=== PATIENT | female | born 1950 | race Caucasian/White ===

== ENCOUNTER → 2017-01-11 | Outpatient (CLI) | payer MEDICARE, OTHER ==
--- NOTE | 2017-01-12 12:43 | MM ---
Reason for exam: screening (asymptomatic). Last mammogram was performed 1 year and 3 months ago. History: Patient is postmenopausal. Benign cyst aspiration of the left breast. Benign excisional biopsy of the left breast. 3 benign excisional biopsies of the right breast. Physical Findings: A clinical breast exam by your physician is recommended on an annual basis and results should be correlated with mammographic findings. MG 3D Screening Mammo W/Cad Bilateral CC and MLO view(s) were taken. Prior study comparison: October 05, 2015, bilateral MG 3d screening mammo w/cad. October 29, 2014, right breast MG work up mamm w CAD RT. The breast tissue is heterogeneously dense. This may lower the sensitivity of mammography. Finding: Stable architectural distortion in the right breast consistent with previous biopsy. No significant changes in finding since October 05, 2015 and October 29, 2014. ASSESSMENT: Benign, BI-RAD 2 RECOMMENDATION: Routine screening mammogram of both breasts in 1 year.
== END | disposition home or self-care (01) ==
LOC: RADMAMWWP 09:16
PROVIDERS: ATTEND Internal Medicine
DX: Z12.31 Encounter for screening mammogram for malignant neoplasm of breast (principal)
CPT/HCPCS: 77063; G0202

== ENCOUNTER → 2018-07-03 | Outpatient (CLI) | payer MEDICARE, OTHER ==
--- NOTE | 2018-07-04 09:03 | MM ---
Reason for exam: screening (asymptomatic). Last mammogram was performed 1 year and 6 months ago. History: Patient is postmenopausal. Benign cyst aspiration of the left breast. Benign excisional biopsy of the left breast. 3 benign excisional biopsies of the right breast. Physical Findings: A clinical breast exam by your physician is recommended on an annual basis and results should be correlated with mammographic findings. MG 3D Screening Mammo W/Cad Bilateral CC and MLO view(s) were taken. Prior study comparison: January 11, 2017, bilateral MG 3d screening mammo w/cad. October 05, 2015, bilateral MG 3d screening mammo w/cad. The breast tissue is heterogeneously dense. This may lower the sensitivity of mammography. Benign appearing bilateral calcifications. Bilateral upper outer quadrant posterior depth focal asymmetry. Post biopsy change bilaterally. ASSESSMENT: Benign, BI-RAD 2 RECOMMENDATION: Routine screening mammogram of both breasts in 1 year.
== END | disposition home or self-care (01) ==
LOC: RADMAMWWP 10:06
PROVIDERS: ATTEND Internal Medicine
DX: Z12.31 Encounter for screening mammogram for malignant neoplasm of breast (principal)
CPT/HCPCS: 77063; 77067

== ENCOUNTER → 2019-09-11 | Outpatient (CLI) | payer MEDICARE, OTHER ==
--- NOTE | 2019-09-12 15:06 | MM ---
Reason for exam: screening (asymptomatic). Last mammogram was performed 1 year and 2 months ago. History: Patient is postmenopausal. Benign cyst aspiration of the left breast. Benign excisional biopsy of the left breast. 3 benign excisional biopsies of the right breast. Physical Findings: A clinical breast exam by your physician is recommended on an annual basis and results should be correlated with mammographic findings. MG 3D Screening Mammo W/Cad Bilateral CC and MLO view(s) were taken. Prior study comparison: July 03, 2018, bilateral MG 3d screening mammo w/cad. January 11, 2017, bilateral MG 3d screening mammo w/cad. There are scattered fibroglandular densities. There is chronic nodularity bilaterally. No significant changes when compared with prior studies. ASSESSMENT: Benign, BI-RAD 2 RECOMMENDATION: Routine screening mammogram of both breasts in 1 year.
== END | disposition home or self-care (01) ==
LOC: RADMAMWWP 09:43
PROVIDERS: ATTEND Internal Medicine
DX: Z12.31 Encounter for screening mammogram for malignant neoplasm of breast (principal)
CPT/HCPCS: 77063; 77067

== ENCOUNTER → 2020-10-05 | Outpatient (CLI) | payer MEDICARE, OTHER ==
--- NOTE | 2020-10-06 11:09 | MM ---
Reason for exam: screening (asymptomatic). Last mammogram was performed 1 year and 1 month ago. History: Patient is postmenopausal. Benign cyst aspiration of the left breast. Benign excisional biopsy of the left breast. 3 benign excisional biopsies of the right breast. Physical Findings: A clinical breast exam by your physician is recommended on an annual basis and results should be correlated with mammographic findings. MG 3D Screening Mammo W/Cad Bilateral CC and MLO view(s) were taken. Prior study comparison: September 11, 2019, bilateral MG 3d screening mammo w/cad. July 03, 2018, bilateral MG 3d screening mammo w/cad. The breast tissue is heterogeneously dense. This may lower the sensitivity of mammography. Stable benign calcifications. Stable post operative distortion right breast. No significant changes when compared with prior studies. ASSESSMENT: Benign, BI-RAD 2 RECOMMENDATION: Routine screening mammogram of both breasts in 1 year.
== END | disposition home or self-care (01) ==
LOC: RADMAMWWP 09:48
PROVIDERS: ATTEND Internal Medicine
DX: Z12.31 Encounter for screening mammogram for malignant neoplasm of breast (principal)
CPT/HCPCS: 77063; 77067

== ENCOUNTER → 2020-11-01 | Outpatient (CLI) | payer MEDICARE, OTHER ==
[2020-11-01 13:58] LABS: African American GFR (CKD) >90 (>60 ml/min/1.73 sqM); Blood Urea Nitrogen 9 mg/dL (7-17); Non-African American GFR(CKD) 90 (>60 ml/min/1.73 sqM)
--- NOTE | 2020-11-01 16:40 | CT ---
EXAMINATION TYPE: CT abdomen pelvis w con DATE OF EXAM: 11/01/2020 COMPARISON: NONE HISTORY: 70-year-old female R10.9 unspecified abdominal pain, c/o nausea, diarrhea, weight loss TECHNIQUE: Contiguous axial scanning of the abdomen and pelvis following administration of 100 ml Iso brandon 300 IV contrast. Delayed images through the kidneys and coronal/sagittal reconstructions perform ed. CT DLP: 1549 mGycm Automated exposure control for dose reduction was used. FINDINGS: Heart normal size without pericardial effusion. Lung bases clear without pleural effusion. Small hiatal hernia. No focal liver lesion or biliary ductal dilatation. Portal venous system is patent. Cholecystectomy c lips. Adrenal glands, right kidney, spleen, and pancreas within normal limits. Small 8 mm centrally located hypodensity left kidney likely small cyst. Symmetric uptake and excretion of contrast from both kidneys. No dilated small bowel, free fluid, or free air. 1.7 cm oval fat density lesion anterior right mid abdominal subcutaneous adipose just below the skin surface could represent an oil cyst or lipoma. No mesenteric or retroperitoneal lymphadenopathy. Moderate stool burden. Oral contrast progressed to the hepatic flexure of the colon. No pericolonic i nflammatory change. Slightly ahaustral appearance to the left side of the colon. No pericolonic infla mmatory change. Bladder partially urine distended. Punctate 3 mm calcification along the left lateral bladder wall li alf adherent bladder calculus. Uterus is anteverted. Scattered uterine calcifications could reflect underlying partially calcified f ibroids. Focal 1.9 cm area of enhancement along the left uterine fundus may require further assessmen t. Right ovary visualized. Possible 2.3 cm cyst of the left ovary, axial image 63. No abnormal fluid col lection in the pelvis or pelvic lymphadenopathy. Bones: Degenerative change pubic symphysis. [id number] degenerative change at the hips. Hypertr ophic facet arthropathy mid to lower lumbar spine with grade 1 anterolisthesis L4-L5 and Baastrup's d isease. [facility] within the lower thoracic spine. IMPRESSION: 1. SMALL HIATAL HERNIA. 2. SOMEWHAT AHAUSTRAL APPEARANCE TO THE LEFT SIDE OF THE COLON. CORRELATE FOR POSSIBLE PRIOR BOUTS OF RECURRENT COLITIS. CHRONIC ULCERATIVE COLITIS IS IN THE DIFFERENTIAL. CONSIDER DIRECT VISUALIZATION. 3. UTERINE CALCIFICATIONS, POSSIBLE UNDERLYING PARTIALLY CALCIFIED FIBROIDS. THERE IS A 1.9 CM HIGH D ENSITY AREA AT THE LEFT UTERINE FUNDUS. A FIBROID IS POSSIBLE. A MASS OF THE LEFT CORNUAL ENDOMETRIUM IS NOT EXCLUDED AT THIS TIME. CONSIDER SNAP SHEARER REFERRAL. PELVIC ULTRASOUND AND/OR FEMALE PELVIC MRI C AN FURTHER EVALUATE. 4. A 2.3 CM CYST OF THE LEFT OVARY. THIS CAN ALSO BE FURTHER ASSESSED ON THE PELVIC ULTRASOUND OR MRI .
== END | disposition home or self-care (01) ==
LOC: RADCTMAIN 13:02
PROVIDERS: ATTEND Internal Medicine
DX: E87.6 Hypokalemia (principal); R10.9 Unspecified abdominal pain; K44.9 Diaphragmatic hernia without obstruction or gangrene; N85.8 Other specified noninflammatory disorders of uterus; N83.202 Unspecified ovarian cyst, left side
CPT/HCPCS: 82565; 84520; 74177; 36415; Q9967

== ENCOUNTER → 2020-12-01 | Outpatient (CLI) | payer MEDICARE, OTHER ==
--- NOTE | 2020-12-02 05:16 | MR ---
EXAMINATION TYPE: MR pelvis wo/w con DATE OF EXAM: 12/01/2020 COMPARISON: CT scan 11/01/2020 HISTORY: Ovarian Cyst CONTRAST: Standard multiplanar, multisequence MRI departmental protocol utilizing 7.5 mL intravenous Gadavist g adolinium contrast. Uterus is somewhat enlarged with heterogeneity consistent with multiple fibroids. These have mixed si gnal and there is low signal in the anterior fibroid that measures 2.5 cm. This is consistent with ca lcification. There is posterior fundal fibroid measuring 2.5 cm. There is 2.5 cm thin wall cyst in th e left adnexal region consistent with simple ovarian cyst. The bladder distends smoothly. I see no fr ee fluid in the pelvis. There is no evidence of right adnexal pelvic mass. The sacroiliac joints appear intact. Visualized bowel in the pelvis appears intact. IMPRESSION: Enlarged fibroid uterus measures 7.7 x 5.7 x 5.4 cm. Endometrial cavity difficult to evaluate because of the multiple fibroids. Left ovarian simple cyst without change in size compared to recent CT scan . No solid adnexal mass.
== END | disposition home or self-care (01) ==
LOC: RADMRIMAIN 06:09
PROVIDERS: ATTEND Internal Medicine
DX: D25.9 Leiomyoma of uterus, unspecified (principal); N83.292 Other ovarian cyst, left side
CPT/HCPCS: 72197; A9585

== ENCOUNTER → 2021-04-14 | Outpatient (CLI) | payer MEDICARE, OTHER ==
[2021-04-15 01:18] LABS: T4, Free (Free Thyroxine) 1.36 ng/dL (0.800-1.800)
== END | disposition home or self-care (01) ==
LOC: LABWHC1 16:06
PROVIDERS: ATTEND Internal Medicine
DX: E05.90 Thyrotoxicosis, unspecified without thyrotoxic crisis or storm (principal)
CPT/HCPCS: 36415; 84439; 84443; 84445; 84481

== ENCOUNTER → 2021-06-22 | Outpatient (CLI) | payer MEDICARE, OTHER ==
--- NOTE | 2021-06-23 09:47 | NM ---
EXAMINATION TYPE: NM thyroid image w uptake DATE OF EXAM: 06/23/2021 COMPARISON: Ultrasound 05/18/2021 HISTORY: Thyrotoxicosis TECHNIQUE: Thyroid iodine uptake is calculated and images performed after the oral administration of 307 uCi 1-123 Capsule. FINDINGS: There is marked heterogeneity in distribution of activity throughout the gland. There is a reduced uptake are seen involving the mid and lower pole the left thyroid and upper pole the right th yroid. The 4 hour iodine uptake is calculated at 11.7% (normal range 8-14%). The 24-hour iodine uptak e is calculated at 33% (normal range 15-35%). IMPRESSION: 1. Heterogeneous uptake bilaterally could be associated with thyroiditis. Areas of reduced uptake are greater than the small lesions reported by ultrasound but do appear to correspond to some of the les ions compatible cold defects.
== END | disposition home or self-care (01) ==
LOC: RADNMMAIN 08:46
PROVIDERS: ATTEND Internal Medicine
DX: E05.90 Thyrotoxicosis, unspecified without thyrotoxic crisis or storm (principal)
CPT/HCPCS: 78014; A9516

== ENCOUNTER → 2021-06-23 | Outpatient (CLI) | payer MEDICARE, OTHER ==
[2021-06-23 14:58] LABS: T4, Free (Free Thyroxine) 1.2 ng/dL (0.800-1.800)
== END | disposition home or self-care (01) ==
LOC: LABWHC1 09:13
PROVIDERS: ATTEND Physician Assistant Medical
DX: E05.90 Thyrotoxicosis, unspecified without thyrotoxic crisis or storm (principal)
CPT/HCPCS: 36415; 84439; 84443; 84481

== ENCOUNTER → 2021-09-19 | Outpatient (CLI) | payer MEDICARE, OTHER ==
[2021-09-19 18:39] LABS: T4, Free (Free Thyroxine) 1.06 ng/dL (0.800-1.800)
== END | disposition home or self-care (01) ==
LOC: LABWHC1 11:38
PROVIDERS: ATTEND Physician Assistant Medical
DX: E05.90 Thyrotoxicosis, unspecified without thyrotoxic crisis or storm (principal)
CPT/HCPCS: 36415; 84439; 84443; 84481

== ENCOUNTER → 2021-11-09 | Outpatient (CLI) | payer MEDICARE, OTHER ==
--- NOTE | 2021-11-10 08:15 | MM ---
Reason for Exam: Screening (asymptomatic). Last mammogram was performed 1 year(s) and 1 month(s) ago. Patient History: Menarche at age 9. First Full-Term at age 16. Postmenopausal. Benign Cyst Aspiration on the left side. Benign Excisional Biopsy on the right side. Benign Excisional Biopsy on the right side. Benign Excisional Biopsy on the right side. Benign Excisional Biopsy on the left side. Risk Values: Liliane 5 year model risk: 2.1%. NCI Lifetime model risk: 5.1%. Prior Study Comparison: 07/03/2018 Bilateral Screening Mammogram, [facility]. 09/11/2019 Bilateral Screening Mammogram, [facility]. 10/05/2020 Bilateral Screening Mammogram, [facility]. Tissue Density: The breast tissue is heterogeneously dense. This may lower the sensitivity of mammography. Findings: Analyzed By CAD. There is no suspicious group of microcalcifications or new suspicious mass in either breast. Post excisional changes of the right breast. Overall Assessment: Benign, BI-RAD 2 Management: Screening Mammogram of both breasts in 1 year. A clinical breast exam by your physician is recommended on an annual basis and results should be correlated with mammographic findings. Electronically signed and approved by: Deion Serrano M.D. Radiologis
== END | disposition home or self-care (01) ==
LOC: RADMAMWWP 10:56
PROVIDERS: ATTEND Internal Medicine
DX: Z12.31 Encounter for screening mammogram for malignant neoplasm of breast (principal)
CPT/HCPCS: 77063; 77067

== ENCOUNTER → 2021-12-26 | Outpatient (CLI) | payer MEDICARE, OTHER ==
[2021-12-26 15:08] LABS: T4, Free (Free Thyroxine) 1.3 ng/dL (0.800-1.800)
== END | disposition home or self-care (01) ==
LOC: LABWHC1 10:26
PROVIDERS: ATTEND Physician Assistant
DX: E05.90 Thyrotoxicosis, unspecified without thyrotoxic crisis or storm (principal)
CPT/HCPCS: 36415; 84439; 84443; 84481

== ENCOUNTER 2022-05-05 22:26 | Emergency (ER) | payer MEDICARE, OTHER ==
[2022-05-05 22:44] VITALS: TEMP 98.3
[2022-05-05] MEDS ORDERED: ACETAMINOPHEN TAB 500 MG TAB PO STA (23:21)
[2022-05-06] VITALS: BP 151/77; PULSE 67; RESP 16
--- NOTE | 2022-05-06 | ED ---
Fall HPI - General Source: patient Mode of arrival: ambulatory <Eva Phan - Last Filed: 05/06/22 00:46> <Mina Kebede - Last Filed: 05/06/22 08:58> - General Chief Complaint: Fall Stated Complaint: Fall, head injury Time Seen by Provider: 05/05/22 22:50 - History of Present Illness Initial Comments: She is a 71-year-old female who presents to the emergency department for evaluation of fall. Patient stepped in a hole in the grass in her yard and fell hitting her head. Patient did not lose consciousness. She is on baby aspirin otherwise not use blood thinners. Patient has laceration to back of scalp with headache in this region. She denies neck pain, nausea, vomiting, chest pain, shortness of breath. Last tetanus greater than 5 years ago. (Eva Phan) - Related Data Allergies Allergy/AdvReac Type Severity Reaction Status Date / Time No Known Allergies Allergy Verified 05/05/22 22:44 Review of Systems ROS Other: All systems not noted in ROS Statement are negative. <Eva Phan - Last Filed: 05/06/22 00:46> ROS Other: All systems not noted in ROS Statement are negative. <Mina Kebede - Last Filed: 05/06/22 08:58> ROS Statement: Those systems with pertinent positive or pertinent negative responses have been documented in the HPI. Past Medical History Past Medical History: Diabetes Mellitus, Hyperlipidemia, Hypertension, Thyroid Disorder History of Any Multi-Drug Resistant Organisms: None Reported Past Surgical History: Adenoidectomy, Appendectomy, Cholecystectomy, Joint Replacement, Orthopedic Surgery, Tonsillectomy Additional Past Surgical History / Comment(s): rt knee Past Psychological History: No Psychological Hx Reported Smoking Status: Never smoker Past Alcohol Use History: None Reported Past Drug Use History: None Reported <Eva Phan - Last Filed: 05/06/22 00:46> General Exam Limitations: no limitations General appearance: alert, in no apparent distress Head exam: Present: normocephalic. Absent: normal inspection (1 cm laceration over occipital left scalp ) Eye exam: Present: normal appearance, PERRL, EOMI. Absent: scleral icterus, conjunctival injection, periorbital swelling Neck exam: Present: normal inspection, full ROM. Absent: tenderness, meningismus, lymphadenopathy Respiratory exam: Present: normal lung sounds bilaterally. Absent: respiratory distress, wheezes, rales, rhonchi, stridor Cardiovascular Exam: Present: regular rate, normal rhythm, normal heart sounds. Absent: systolic murmur, diastolic murmur, rubs, gallop, clicks Neurological exam: Present: alert, oriented X3, CN II-XII intact Psychiatric exam: Present: normal affect, normal mood Skin exam: Present: warm, dry, intact, normal color. Absent: rash <Eva Phan - Last Filed: 05/06/22 00:46> Course Vital Signs 05/05/22 05/06/22 22:40 00:00 Temperature 98.3 F Pulse Rate 66 67 Respiratory 20 16 Rate Blood Pressure 199/79 151/77 O2 Sat by Pulse 98 99 Oximetry Procedures - Laceration Laceration #1 Indication: laceration Site: scalp Size (cm): 1 Description: linear Pre-repair: wound explored, irrigated extensively Patient Tolerated Procedure: well, no complications <Eva Phan - Last Filed: 05/06/22 00:46> - Laceration Laceration #1 Additional Comments: 2 alpesh (Eva Phan) Medical Decision Making <Eva Phan - Last Filed: 05/06/22 00:46> <Mina Kebede - Last Filed: 05/06/22 08:58> - Medical Decision Making Was pt. sent in by a medical professional or institution ([facility]AMES [facility], METAL FURNACE OPERATOR, urgent care, hospital, or intermediate...) When possible be specific @ -No Did you speak to anyone other than the patient for history (EMS, parent, family, police, friend...)? What history was obtained from this source @ -No Did you review nursing and triage notes (agree or disagree)? Why? @ -I reviewed and agree with nursing and triage notes Were old charts reviewed (outside hosp., previous admission, EMS record, old EKG, old radiological studies, urgent care reports/EKG's, intermediate records)? Report findings @ -No old charts were reviewed Differential Diagnosis (chest pain, altered mental status, abdominal pain women, abdominal pain men, vaginal bleeding, weakness, fever, dyspnea, syncope, headache, dizziness, GI bleed, back pain, seizure, CVA, palpatations, mental health)? @ -Differential Headache: Migraine, tension, cluster, carbon monoxide, central venous thrombosis, pension karma temporal arteritis, acute closure glaucoma, intercranial hemorrhage, mastoiditis, sinusitis, head injury, this is not meant to be an all-inclusive list. EKG interpreted by me (3pts min.). @ -As above X-rays interpreted by me (1pt min.). @ NA CT interpreted by me (1pt min.). @ Yes, CT brain c spine U/S interpreted by me (1pt. min.). @ -None done What testing was considered but not performed or refused? (CT, X-rays, U/S, labs)? Why? @ -None What meds were considered but not given or refused? Why? @ -None Did you discuss the management of the patient with other professionals (professionals i.e. , PA, METAL FURNACE OPERATOR, lab, RT, psych nurse, social media executive, mulling machine operator, teacher, trust officer, renal case manager)? Give summary @ -No Was smoking cessation discussed for >3mins.? @ -No Was critical care preformed (if so, how long)? @ -No Were there social determinants of health that impacted care today? How? (Homelessness, low income, unemployed, alcoholism, drug addiction, transportation, low edu. Level, literacy, decrease access to med. care, [facility], rehab)? @ -No Was there de-escalation of care discussed even if they declined (Discuss DNR or withdrawal of care, Hospice)? DNR status @ -No What co-morbidities impacted this encounter? (DM, HTN, Smoking, COPD, CAD, Cancer, CVA, ARF, Chemo, Hep., AIDS, mental health diagnosis, sleep apnea, morbid obesity)? @ -None Was patient admitted / discharged? Hospital course, mention meds given and route, prescriptions, significant lab abnormalities, going to OR and other pertinent info. @ -Patient is 71-year-old female presenting with head injury. Patient well- appearing she reports improvement of pain since incident. No nausea or vomiting. No loss of consciousness. No blood thinner use. Patient has small laceration to back of scalp which was well approximated with 2 alpesh. Tetanus updated. Patient given Tylenol. Patient care given to Dr. Kebede at 00:45 Undiagnosed new problem with uncertain prognosis? @ -No] Drug Therapy requiring intensive monitoring for toxicity (Heparin, Nitro, Insulin, Cardizem)? @ -[No] Were any procedures done? @ yes, staple care Diagnosis/symptom? @ -head injury Acute, or Chronic, or Acute on Chronic? @ -acute Uncomplicated (without systemic symptoms) or Complicated (systemic symptoms)? @ -uncomplicated Side effects of treatment? @ -[No] Exacerbation, Progression, or Severe Exacerbation? @ -[No] Poses a threat to life or bodily function? How? (Chest pain, [place], [place], pneumonia, PE, COPD, DKA, ARF, appy, cholecystitis, CVA, Diverticulitis, Homicidal, Suicidal, threat to staff... and all critical care pts) @ -[No] Dr. Kebede is my attending. (Eva Phan) Patient signed out to me pending results of CT imaging. CT imaging returned after a long delay, and was negative for any acute traumatic injury. I updated the patient. Strict return precautions were discussed. Patient will be discharged home at this time. I instructed the patient to follow up with their PCP in the next 1-3 days. I explained that the patient should return to the emergency department if they experience any worsening symptoms. Strict return precautions were discussed with the patient. The patient expressed understanding of these instructions. I answered all questions that the patient had. The patient was discharged home in good condition with their prescriptions and follow up information. (Mina Kebede) Disposition Is patient prescribed a controlled substance at d/c from ED?: No <Eva Phan - Last Filed: 05/06/22 00:46> Decision Time: 01:30 <Mina Kebede - Last Filed: 05/06/22 08:58> Clinical Impression: Head injury Disposition: HOME SELF-CARE Condition: Good Instructions (If sedation given, give patient instructions): Concussion (ED), Fall Prevention for Older Adults (ED), Head Injury (ED), Staple Care (ED) Additional Instructions: Avoid anti-inflammatory medication for the next 48 hours. Take Tylenol for pain. Follow-up with primary care provider in one to 2 days. Return for staple removal in 7 days or if you experience new, concerning, or worsening symptoms. Referrals: Bessy Sweeney MD [Primary Care Provider] - 1-2 days
[2022-05-06] MEDS ORDERED: DIPH,PERTUS(ACELL)TETVAC-LF 0.5 ML VIAL IM ONE (00:33)
--- NOTE | 2022-05-06 01:24 | CT ---
EXAMINATION TYPE: CT brain cspine wo con DATE OF EXAM: 05/06/2022 COMPARISON: None HISTORY: 10/12/[address] DLP: 1463.6 mGycm Automated exposure control for dose reduction was used. Images of the brain and cervical spine obtained with no contrast. Ventricles have normal size. There is no mass effect or midline shift. No sign of intracranial hemorr renay. The calvarium is intact. There is normal aeration of the mastoid sinuses. The skull base is int act paranasal sinuses appear normal. No evidence of cerebral edema. There is scalp soft tissue swelli ng over the occipital bone in the midline measuring 5 mm The cervical vertebra have normal alignment. Posterior element are intact. There is multilevel cervic al facet arthropathy. No subluxation. No significant disc space narrowing. IMPRESSION: Mild cervical spondylotic changes. No fracture. Negative CT scan of the brain. Brain appears normal for age. Small occipital scalp hematoma.
== END 2022-05-06 01:45 | disposition home or self-care (01) ==
LOC: EC 22:26
DX: S09.90XA Unspecified injury of head, initial encounter (principal); M47.812 Spondylosis without myelopathy or radiculopathy, cervical region; E11.9 Type 2 diabetes mellitus without complications; I10 Essential (primary) hypertension; Z23 Encounter for immunization; W18.30XA Fall on same level, unspecified, initial encounter
CPT/HCPCS: 12001; 70450; 72125; 90471; 90715; 99284

== ENCOUNTER → 2022-06-01 | Outpatient (CLI) | payer MEDICARE, OTHER ==
--- NOTE | 2022-06-01 10:48 | US ---
EXAMINATION TYPE: US thyroid st tissue head/neck DATE OF EXAM: 06/01/2022 COMPARISON: US 05/18/2021 CLINICAL INDICATION: Female, 71 years old with history of E04.2 MULTINODULAR GOITER; Goiter, patient is on thyroid medication. GLAND SIZE: Right Lobe: 4.5 x 1.7 x 1.8 cm Overall Parenchyma: Very heterogenous Left Lobe: 4.5 x 1.8 x 2.0 cm Overall Parenchyma: heterogeneous Isthmus Thickness: 0.4 cm NODULES RIGHT: # of nodules measured on right: 1 1. 1.1 X 1.0 x 0.9 cm, lower mid, solid or almost completely solid, hypoechoic nodule, which is wid er than tall, with smooth margins, with echogenic foci. TR 4. Prior size: Cannot correlate with certainty on prior ultrasound. LEFT: # of nodules measured on left: 4 1. 1.2 X 1.1 x 1.0 cm, mid lateral, solid or almost completely solid, hypoechoic nodule, which is w ider than tall, with smooth margins, without echogenic foci. TR 4. Prior size: Cannot correlate with certainty 2. 0.8 X 0.9 x 0.9 cm, lower mid, mixed cystic and solid, hypoechoic nodule, which is as wide as i t is tall, with smooth margins, without echogenic foci. TR 3. Prior size: Cannot correlate with certainty 3. 0.7 X 0.8 x 0.7 cm, lower mid, cystic or almost completely cystic, anechoic nodule, which is wid er than tall, with smooth margins, with echogenic foci. TR1. Prior size: Cannot correlate with certainty 4. 0.4 X 0.4 x 0.3 cm, upper lateral, solid or almost completely solid, hyperechoic nodule, which is wider than tall, with smooth margins, with echogenic foci. TR 4. Prior size: 0.3 x 0.3 x 0.3 cm ISTHMUS: # of nodules measured in the isthmus: 0 Bilateral neck scanned, no evidence of lymphadenopathy. IMPRESSION: Multiple small bilateral thyroid nodules demonstrated with diffusely heterogenous thyroid gland. Thes e appear grossly stable from prior examination however evaluation is limited due to heterogeneity of the gland. None of these nodules meet criteria for FNA. Follow-up ultrasound in one year is recommend ed.
[2022-06-01 16:14] LABS: T4, Free (Free Thyroxine) 1.13 ng/dL (0.800-1.800)
== END | disposition home or self-care (01) ==
LOC: RADUSWWP 08:58
PROVIDERS: ATTEND Internal Medicine
DX: E04.2 Nontoxic multinodular goiter (principal); E11.9 Type 2 diabetes mellitus without complications; E05.90 Thyrotoxicosis, unspecified without thyrotoxic crisis or storm
CPT/HCPCS: 36415; 76536; 83036; 84439; 84443; 84481

== ENCOUNTER → 2022-08-31 | Outpatient (CLI) | payer MEDICARE, OTHER ==
--- NOTE | 2022-08-31 10:37 | P.GSHP ---
History of Present Illness H&P Date: 08/31/22 Chief Complaint: breast pain Abeba is a 71 year old female seen in consultation for Dr. Sweeney regarding an abnormal right breast mammogram. Her last bilateral mammogram was 11-09-22 it was BIRASD 2. A diagnositc right breast ultrasound and mammogram were done 04-21-22. The patient has had some intermittent breast pain. She states the pain was bilateral in nature. I'm uncertain as to why only the right mammogram was done in April. The patient's mammogram on showed scattered fibroglandular densities. The patient's ultrasound on the same date revealed at the 9 o'clock position a 6 x 4 mm hypoechoic lesion possible debris- filled cyst At the 9 o'clock position a 1.4 x 0.7 cm possible lipoma At the 10 o'clock position a couple additional 2 small to characterize lesions present just deep to the skin This was considered BIRADS 3 and repeat ultrasound in 6 months was recommended. The patient is not complaining of any new lumps masses or nodules in either breast. The patient is not complaining of any nipple discharge or skin changes. She had had a right breast biopsy about 30 years ago which was benign. caffeine: 3 cups tea/day; 1 pop/day nicotine: none chocolate: occasional BCP: 10 years hormones: at menopause over the counter 2 months Family history: sister: ? kidney or liver cancer Hormonal History: menarche: 9 as well at 2 adopted; breat fed: yes, age at first : 17 menopause: 41 Surgical History: tonsil/adeniods Stripping Gallbladder Right breast biopsy right knee replaced Medical history: diabetic hypothyroid HTN vertigo asthma Social History: nicotine: none alcohol: none drugs: none - Constitutional Constitutional: Denies chills, Denies fever - EENT Eyes: denies blurred vision, denies pain Ears: deny: decreased hearing, tinnitus Ears, nose, mouth and throat: Denies headache, Denies sore throat - Breasts Breasts: bilateral: as per HPI - Cardiovascular Cardiovascular: Denies chest pain, Denies shortness of breath - Respiratory Respiratory: Denies cough, Denies 7 - Gastrointestinal Gastrointestinal: Reports diarrhea, Denies abdominal pain, Denies nausea, Denies vomiting - Genitourinary (Female) Genitourinary: Denies dysuria, Denies hematuria - Menstruation Menstruation: Reports postmenopausal - Musculoskeletal Musculoskeletal: Denies myalgias - Integumentary Comment: none - Neurological Neurological: Denies numbness, Denies weakness - Psychiatric Psychiatric: Denies anxiety, Denies depression - Endocrine Endocrine: Reports weight change, Denies fatigue - Hematologic/Lymphatic Comment: none - Allergic/Immunologic Allergic/Immunologic: Reports seasonal allergies Past Medical History Past Medical History: Diabetes Mellitus, Hyperlipidemia, Hypertension, Thyroid Disorder History of Any Multi-Drug Resistant Organisms: None Reported Past Surgical History: Adenoidectomy, Appendectomy, Cholecystectomy, Joint Replacement, Orthopedic Surgery, Tonsillectomy Additional Past Surgical History / Comment(s): rt knee Past Psychological History: No Psychological Hx Reported Smoking Status: Never smoker Past Alcohol Use History: None Reported Past Drug Use History: None Reported Medications and Allergies Allergies Allergy/AdvReac Type Severity Reaction Status Date / Time No Known Allergies Allergy Verified 05/05/22 22:44 Surgical - Exam - General no distress - Eyes normal ocular movement - ENT no hearing loss - Neck trachea midline - Respiratory normal respiratory effort, clear to auscultation - Cardiovascular Rhythm: regular Heart Sounds: normal: S1, S2 - Abdomen Abdomen: soft, non tender, no guarding, no rigid, no rebound - Integumentary normal turgor - Neurologic no disoriented, no combative - Musculoskeletal normal gait, normal posture - Psychiatric oriented to time, oriented to person, oriented to place, speech is normal, memory intact Breast Exam: BRA: 44D Inspection: Bilateral grade 3 ptosis Palpation: Right breast: Multi-positional exam fibrocystic changes well-healed scar from prior surgery no discrete dominant masses or nodules of concern Right axilla: No adenopathy of concern Left breast: Multiple positional exam fibrocystic changes no discrete dominant masses or nodules of concern Left axilla: No adenopathy of concern Results Bilateral mammogram from October 2021 as well as right breast mammogram and ultrasound from April 2022 review; patient is due for bilateral mammogram and right breast ultrasound in October 2022 Assessment and Plan Assessment: Impression: Bilateral breast pain Patient drinks a large amount of caffeine Mammogram and ultrasound of the breast reviewed Plan: Bilateral mammograms and right breast ultrasound in October 2022 with appointment at that time Patient is going to try lifestyle modification to decrease caffeine intake Nothing is noted at this time which would warrant interventional biopsy Cc: Dr. Sweeney
[2022-08-31 10:59] VITALS: BP 160/83; PULSE 69; RESP 17; TEMP 97.9
== END ==
LOC: WWCWWP 10:03
PROVIDERS: ATTEND Surgery
DX: N64.4 Mastodynia (principal); E11.9 Type 2 diabetes mellitus without complications; E03.9 Hypothyroidism, unspecified; E78.5 Hyperlipidemia, unspecified; I10 Essential (primary) hypertension; J45.909 Unspecified asthma, uncomplicated; Z79.899 Other long term (current) drug therapy; Z79.84 Long term (current) use of oral hypoglycemic drugs; Z75.1 Person awaiting admission to adequate facility elsewhere

== ENCOUNTER → 2022-10-24 | Outpatient (CLI) | payer MEDICARE, OTHER ==
--- NOTE | 2022-10-24 09:35 | MM ---
Reason for Exam: Follow-up at short interval from prior study. Last screening mammogram was performed 12 month(s) ago. Patient History: Menarche at age 9. First Full-Term at age 16. Postmenopausal. Benign Cyst Aspiration on the left side. Benign Excisional Biopsy on the right side. Benign Excisional Biopsy on the right side. Benign Excisional Biopsy on the right side. Benign Excisional Biopsy on the left side. Risk Values: Liliane 5 year model risk: 2.1%. NCI Lifetime model risk: 4.8%. Prior Study Comparison: 10/05/2015 Bilateral Screening Mammogram, [facility]. 01/11/2017 Bilateral Screening Mammogram, [facility]. 07/03/2018 Bilateral Screening Mammogram, [facility]. 09/11/2019 Bilateral Screening Mammogram, [facility]. 10/05/2020 Bilateral Screening Mammogram, [facility]. 11/09/2021 Bilateral MG 3D screening mammo w/cad, [facility]. 04/21/2022 Right US breast RT, [facility]. 04/21/2022 Right MG 3D diag mammo w/cad RT, [facility]. Tissue Density: There are scattered fibroglandular densities. Findings: Analyzed By CAD. Unchanged post excisional scar 12 1:00 right breast. Areas of asymmetric density also remain unchanged as do scattered secretory calcifications and benign bilateral oil cyst calcifications. Overall Assessment: Incomplete: need additional imaging evaluation, BI-RAD 0 Management: Diagnostic Breast Ultrasound of the right breast. Electronically signed and approved by: Bhavin Schwartz M.D. Radiologist
--- NOTE | 2022-10-24 10:15 | USB ---
Reason for Exam: Follow-up at short interval from prior study. Patient History: Menarche at age 9. First Full-Term at age 16. Postmenopausal. Benign Cyst Aspiration on the left side. Benign Excisional Biopsy on the right side. Benign Excisional Biopsy on the right side. Benign Excisional Biopsy on the right side. Benign Excisional Biopsy on the left side. Risk Values: Liliane 5 year model risk: 2.1%. NCI Lifetime model risk: 4.8%. Technique: Method: Targeted. Prior Study Comparison: 10/05/2020 Bilateral Screening Mammogram, [facility]. 11/09/2021 Bilateral MG 3D screening mammo w/cad, [facility]. 04/21/2022 Right MG 3D diag mammo w/cad RT, [facility]. Findings: The lateral section of the breast of the right breast, the axilla of the right breast and the retroareolar of the right breast were scanned. Targeted scanning of the upper outer aspect of the right breast 9:00 and 10:00 position including the subareolar region and axilla. * The previously seen 9:00 vague oval hypoechoic structure measuring 6 mm is no longer identified. * The echogenic oval circumscribed lesion at the 9:00 position, 9 cm from the nipple measuring 1.4 x 1.0 x 0.7 cm remains unchanged most consistent with a benign lipoma. * A couple adjacent cysts measuring up to 6 mm located at 10:00, 6 cm from the nipple remain unchanged. * No other solid or cystic lesion or axillary lymphadenopathy. Overall Assessment: Benign, BI-RAD 2 Management: Screening Mammogram of both breasts in 1 year. A clinical breast exam by your physician is recommended on an annual basis and results should be correlated with mammographic findings. This exam should not preclude additional follow-up of suspicious palpable abnormalities. Results were given to the patient verbally at the time of exam. Electronically signed and approved by: Bhavin Schwartz M.D. Radiologist
== END | disposition home or self-care (01) ==
LOC: RADMAMWWP 08:30
PROVIDERS: ATTEND Surgery
DX: R92.8 Other abnormal and inconclusive findings on diagnostic imaging of breast (principal); Z78.0 Asymptomatic menopausal state
CPT/HCPCS: 77066; 76642; G0279; 77062

== ENCOUNTER → 2022-11-30 | Outpatient (CLI) | payer MEDICARE, OTHER ==
[2022-11-30 13:58] VITALS: BP 147/92; PULSE 73; RESP 17; TEMP 97.9
--- NOTE | 2022-11-30 14:34 | P.PN ---
Subjective Progress Note Date: 11/30/22 Principal diagnosis: breast pain breast pain Abeba is a 71 year old female seen in consultation for Dr. Sweeney regarding an abnormal right breast mammogram. Her last bilateral mammogram was 11-09-22 it was BIRASD 2. A diagnositc right breast ultrasound and mammogram were done 04-21-22. The patient has had some intermittent breast pain. She states the pain was bilateral in nature. I'm uncertain as to why only the right mammogram was done in April. The patient's mammogram on showed scattered fibroglandular densities. The patient's ultrasound on the same date revealed at the 9 o'clock position a 6 x 4 mm hypoechoic lesion possible debris- filled cyst At the 9 o'clock position a 1.4 x 0.7 cm possible lipoma At the 10 o'clock position a couple additional 2 small to characterize lesions present just deep to the skin This was considered BIRADS 3 and repeat ultrasound in 6 months was recommended. The patient is not complaining of any new lumps masses or nodules in either breast. The patient is not complaining of any nipple discharge or skin changes. She had had a right breast biopsy about 30 years ago which was benign. 11-30-22 bilateral mammogram on 10-24-22; right breast ultrasound 10-24-22 BIRAD 2 1. probable benign lipoma at 9:00 2. 6 mm cyst at 10:00 She is not complaining of any new lumps masses or nodules of concern in either breast. She states that the pain which she had prior has decreased. He has decreased her caffeine intake. caffeine: 3 cups tea/day; 1 pop/day; 11-30-22 has stopped drinking pop/ decreased tea nicotine: none chocolate: occasional BCP: 10 years hormones: at menopause over the counter 2 months Family history: sister: ? kidney or liver cancer Hormonal History: menarche: 9 as well at 2 adopted; breat fed: yes, age at first : 17 menopause: 41 Surgical History: tonsil/adeniods Stripping Gallbladder Right breast biopsy right knee replaced Medical history: diabetic hypothyroid HTN vertigo asthma Social History: nicotine: none alcohol: none drugs: none - Constitutional Constitutional: Denies chills, Denies fever - EENT Eyes: denies blurred vision, denies pain Ears: deny: decreased hearing, tinnitus Ears, nose, mouth and throat: Denies headache, Denies sore throat - Breasts Breasts: bilateral: as per HPI - Cardiovascular Cardiovascular: Denies chest pain, Denies shortness of breath - Respiratory Respiratory: Denies cough - Gastrointestinal Gastrointestinal: Reports diarrhea, Denies abdominal pain, Denies nausea, Denies vomiting - Genitourinary (Female) Genitourinary: Denies dysuria, Denies hematuria - Menstruation Menstruation: Reports postmenopausal - Musculoskeletal Musculoskeletal: Denies myalgias - Integumentary Comment: none - Neurological Neurological: Denies numbness, Denies weakness - Psychiatric Psychiatric: Denies anxiety, Denies depression - Endocrine Endocrine: Reports weight change, Denies fatigue - Hematologic/Lymphatic Comment: none - Allergic/Immunologic Allergic/Immunologic: Reports seasonal allergies Past Medical History Past Medical History: Diabetes Mellitus, Hyperlipidemia, Hypertension, Thyroid Disorder History of Any Multi-Drug Resistant Organisms: None Reported Past Surgical History: Adenoidectomy, Appendectomy, Cholecystectomy, Joint Replacement, Orthopedic Surgery, Tonsillectomy Additional Past Surgical History / Comment(s): rt knee Past Psychological History: No Psychological Hx Reported Smoking Status: Never smoker Past Alcohol Use History: None Reported Past Drug Use History: None Reported Medications and Allergies Allergies Allergy/AdvReac Type Severity Reaction Status Date / Time No Known Allergies Allergy Verified 05/05/22 22:44 Objective - Vital Signs Vital signs: Vital Signs Temp 97.9 F 11/30/22 13:49 Pulse 73 11/30/22 13:49 Resp 17 11/30/22 13:49 BP 147/92 11/30/22 13:49 Pulse Ox 97 11/30/22 13:49 FiO2 Intake & Output 11/29/22 11/30/22 11/30/22 18:59 06:59 18:59 Weight 86.183 kg - Constitutional General appearance: Present: cooperative - EENT Eyes: Present: EOMI ENT: Present: hearing grossly normal - Neck Neck: Present: normal ROM - Respiratory Respiratory: bilateral: CTA - Cardiovascular Heart sounds: normal: S1, S2 - Gastrointestinal General gastrointestinal: Present: soft - Integumentary Integumentary: Present: normal turgor - Musculoskeletal Musculoskeletal: Present: gait normal - Psychiatric Psychiatric: Present: A&O x's 3, appropriate affect, intact judgment & insight - Additional findings Additional findings: Breast Exam: BRA: 44D Inspection: Bilateral grade 3 ptosis Palpation: Right breast: patient examined sitting up fibrocystic changes well-healed scar from prior surgery no discrete dominant masses or nodules of concern Right axilla: No adenopathy of concern Left breast: patient examined sitting up exam fibrocystic changes no discrete dominant masses or nodules of concern Left axilla: No adenopathy of concern Assessment and Plan Assessment: mpression: Bilateral breast pain improved Patient drinks less caffiene Mammogram 10-24-22 and ultrasound of the right breast reviewed 10-24-22 BIRAD 2 Plan: Bilateral mammograms and right breast ultrasound in October 2023 with saul ointment at that time Patient is going to try to continue to decrease caffeine intake Nothing is noted at this time which would warrant interventional biopsy Cc: Dr. Sweeney
== END ==
LOC: WWCWWP 13:24
PROVIDERS: ATTEND Surgery
DX: N64.4 Mastodynia (principal); N60.01 Solitary cyst of right breast; I10 Essential (primary) hypertension; E78.5 Hyperlipidemia, unspecified; J45.909 Unspecified asthma, uncomplicated; E11.9 Type 2 diabetes mellitus without complications; E03.9 Hypothyroidism, unspecified; Z79.899 Other long term (current) drug therapy; Z79.51 Long term (current) use of inhaled steroids; Z79.84 Long term (current) use of oral hypoglycemic drugs

== ENCOUNTER → 2022-11-30 | Outpatient (CLI) | payer MEDICARE, OTHER ==
--- NOTE | 2022-12-07 11:08 | BD ---
EXAMINATION TYPE: Axial Bone Density DATE OF EXAM: 11/30/2022 CLINICAL HISTORY: 72 years old Female. ICD-10 CODE: N95.8 MENOPAUSAL AND PERIMENOPAUSAL DISORDER Height: 60.25 Weight: 194 FRAX RISK QUESTIONS: Family History (Parent hip fracture): no History of Fracture in Adulthood: no Secondary Osteoporosis: yes 2. Hyperthyroidism: yes 3. Menopause before 45: yes, 40 RISK FACTORS HISTORY OF: Family History of Osteoporosis: no Active: yes Diet low in dairy products/other sources of calcium: no Postmenopausal woman: yes Lost more than 2 inches in height since high school: no Frequent falls: no Poor Health: no MEDICATIONS: Thyroid Medications: yes Which medication: methimazole How Lon + years Additional Medications: yes hbp meds, diabetes meds, asthma, EXAM MEASUREMENTS: Bone mineral densitometry was performed using the [employer] System. Bone mineral density as measured about the Lumbar spine is: ----- L1-L4(G/cm2): 1.544 T Score Values are as follows: ----- L1: 1.8 ----- L2: 3.2 ----- L3: 3.2 ----- L4: 3.3 ----- L1-L4: 3.0 Z Score Values are as follows: ----- L1: 2.8 ----- L2: 4.2 ----- L3: 4.2 ----- L4: 4.3 ----- L1-L4: 4.0 Bone mineral density baseline Bone mineral density about the R hip (g/cm2): 1.061 Bone mineral density about the L hip (g/cm2): 1.147 T Score values are as follows: -----R Neck: -0.6 -----L Neck: -0.6 -----R Total: 0.4 -----L Total: 1.1 Z Score values are as follows: -----R Neck: 0.7 -----L Neck: 0.8 -----R Total: 1.6 -----L Total: 2.2 Bone mineral density baseline FRAX%s: The graph provided illustrates a 7.9% chance for a major osteoporotic fx and a 0.9% chance fo r the hips probability for fx in 10 years time. IMPRESSION: Normal (Values between +1 and -1 indicate normal bone mass). Consider repeating this study in 5 year s or sooner if there is some new clinical indication. NOTE: T-SCORE=SD OF THE YOUNG ADULT MEAN.
== END | disposition home or self-care (01) ==
LOC: RADBDWWP 13:23
PROVIDERS: ATTEND Internal Medicine
DX: N95.8 Other specified menopausal and perimenopausal disorders (principal)
CPT/HCPCS: 77080

== ENCOUNTER → 2022-12-20 | Outpatient (CLI) | payer MEDICARE, OTHER ==
[2022-12-21 02:37] LABS: T4, Free (Free Thyroxine) 1.38 ng/dL (0.80-1.80)
== END | disposition home or self-care (01) ==
LOC: LABWHC1 10:57
PROVIDERS: ATTEND Physician Assistant
DX: E05.90 Thyrotoxicosis, unspecified without thyrotoxic crisis or storm (principal)
CPT/HCPCS: 36415; 84439; 84443; 84481

== ENCOUNTER → 2023-01-09 | Outpatient (CLI) | payer MEDICARE, OTHER ==
--- NOTE | 2023-01-09 21:29 | US ---
EXAMINATION TYPE: US thyroid st tissue head/neck DATE OF EXAM: 01/09/2023 COMPARISON: US 2022 CLINICAL INDICATION: Female, 72 years old with history of E04.2 MULTINODULAR GOITER; Goiter GLAND SIZE: Right Lobe: 4.5 x 1.7 x 1.7 cm Overall Parenchyma: heterogenous Left Lobe: 5.7 x 1.7 x 2.2 cm Overall Parenchyma: heterogenous Isthmus Thickness: 0.40 cm NODULES RIGHT: # of nodules measured on right: 1 1. 0.9 X 0.9 x 0.9 cm, lower mid, solid or almost completely solid, hypoechoic nodule, which is as wide as it is tall, with smooth margins, with echogenic foci. Prior size: 1.1 x 1.0 x 0.9 cm LEFT: # of nodules measured on left: 3 1. 1.2 X 1.1 x 1.0 cm, mid lateral, solid or almost completely solid, hypoechoic nodule, which is w ider than tall, with smooth margins, without echogenic foci. Prior size: 1.2 x 1.1 x 1.0 cm 2. 1.6 X 1.4 x 1.0 cm, lower mid, solid or almost completely solid, hypoechoic nodule, which is wi edwin than tall, with smooth margins, without echogenic foci. TR 4 Prior size: Does not correlate 3. 1.1 X 1.3 x 1.2 cm, upper mid, solid or almost completely solid, hypoechoic nodule, which is tall er than wide, with smooth margins, with echogenic foci. Prior size: Does not correlate ISTHMUS: # of nodules measured in the isthmus: 0 Bilateral neck scanned, no evidence of lymphadenopathy. IMPRESSION: 1. Moderately suspicious nodule mid left lobe thyroid. Fine-needle aspiration recommended. 2017 ACR TI-RADS LEVEL: TR-RADS 4 - Moderately Suspicious: Follow if > 1 cm, FNA if > 1.5 cm *Highest TI-RADS level nodule reported
== END | disposition home or self-care (01) ==
LOC: RADUSWWP 07:17
PROVIDERS: ATTEND Internal Medicine
DX: E04.2 Nontoxic multinodular goiter (principal)
CPT/HCPCS: 76536

== ENCOUNTER 2023-03-28 12:51 | Day surgery (SDC) | payer MEDICARE, OTHER ==
[2023-03-28 13:46] VITALS: RESP 16; TEMP 97.9
--- NOTE | 2023-03-28 14:32 | US ---
EXAMINATION TYPE: US discontinued FNA panel DATE OF EXAM: 03/28/2023 2:21 PM CLINICAL INDICATION:Female, 72 years old with history of E04.2 NONTOXIC MULTINODULAR GOITER; , thyroi d nodule. COMPARISON: 01/01/2023 ATTENDING: Dr. Javier Yao PROCEDURE: Informed consent was obtained. The risks and benefits of the procedure were discussed with the patien t. The site was marked. Timeout procedure was performed Ultrasound imaging of the thyroid demonstrates a deep thyroid nodule next to the left common carotid artery. The patient was prepped, draped in the usual sterile fashion, and locally anesthetized with 1% lidoca ine. Multiple attempts at positioning including sagittal and transverse imaging were performed, the n eedle was positioned multiple times with the best approach and a 2 in. needle was also utilized. The 2 inch needle not long enough to reach the nodule. At that time is determined to discontinue the biop sy. The patient was agreeable to this. Patient tolerated the attempted procedure without incident and was sent home in stable condition. IMPRESSION: Discontinued ultrasound guided fine needle aspiration. The thyroid nodule was a precarious and deep l ocation and not able to be visualized well on transverse imaging of the neck. Surveillance with thyro id ultrasound of the neck recommended.
[2023-03-28 14:42] LABS: Glucose,Whole Blood 117 mg/dL (70-110)
[2023-03-28 15:20] VITALS: BP 203/85; PULSE 78
== END 2023-03-28 15:00 | disposition home or self-care (01) ==
LOC: RADPROMAIN 12:51
PROVIDERS: ATTEND Internal Medicine
DX: Z53.8 Procedure and treatment not carried out for other reasons (principal); E04.2 Nontoxic multinodular goiter
CPT/HCPCS: 76536

== ENCOUNTER → 2023-06-08 | Outpatient (CLI) | payer MEDICARE, OTHER ==
[2023-06-08 16:09] LABS: T4, Free (Free Thyroxine) 1.26 ng/dL (0.80-1.80)
== END | disposition home or self-care (01) ==
LOC: LABWHC1 09:45
PROVIDERS: ATTEND Physician Assistant
DX: E05.90 Thyrotoxicosis, unspecified without thyrotoxic crisis or storm (principal)
CPT/HCPCS: 36415; 84439; 84443; 84445; 84481

== ENCOUNTER → 2023-10-26 | Outpatient (CLI) | payer MEDICARE, OTHER ==
--- NOTE | 2023-10-26 13:34 | MM ---
Reason for Exam: Follow-up at short interval from prior study. Last screening mammogram was performed 12 month(s) ago. Patient History: Menarche at age 9. First Full-Term at age 16. Postmenopausal. Benign Cyst Aspiration on the left side. Benign Excisional Biopsy on the right side. Benign Excisional Biopsy on the right side. Benign Excisional Biopsy on the right side. Benign Excisional Biopsy on the left side. Risk Values: Liliane 5 year model risk: 2.1%. NCI Lifetime model risk: 4.5%. Tissue Density: The breasts are heterogeneously dense, which may obscure small masses. Findings: Analyzed By CAD. Chronic nodularity. No evidence for suspicious microcalcifications. Benign calcifications noted bilaterally. Overall Assessment: Benign, BI-RAD 2 Management: Screening Mammogram of both breasts in 1 year. . Results were given to the patient verbally at the time of exam. Patient should continue monthly self-breast exams. A clinical breast exam by your physician is recommended on an annual basis. This exam should not preclude additional follow-up of suspicious palpable abnormalities. Note on Liliane scores and lifetime risk: 1. A Liliane score greater than 3% is considered moderate risk. If this is the case, consider specialist referral to assess eligibility for a risk reducing agent. 2. If overall lifetime risk for the development of breast cancer is 20% or higher, the patient may qualify for future screening with alternating mammogram and breast MRI. Electronically signed and approved by: Deion Serrano M.D. Radiologis
== END | disposition home or self-care (01) ==
LOC: RADMAMWWP 13:04
PROVIDERS: ATTEND Surgery
DX: R92.8 Other abnormal and inconclusive findings on diagnostic imaging of breast
CPT/HCPCS: 77062; 77066

== ENCOUNTER → 2023-11-01 | Outpatient (CLI) | payer MEDICARE, OTHER ==
[2023-11-01 12:59] VITALS: BP 166/73; PULSE 92; RESP 17; TEMP 97.9
--- NOTE | 2023-11-01 13:27 | P.PN ---
Subjective Progress Note Date: 11/01/23 Principal diagnosis: breast pain 11/30/22 Principal diagnosis: breast pain Abeba is a 71 year old female seen in consultation for Dr. Sweeney regarding an abnormal right breast mammogram. Her last bilateral mammogram was 11-09-22 it was BIRASD 2. A diagnositc right breast ultrasound and mammogram were done 04-21-22. The patient has had some intermittent breast pain. She states the pain was bilateral in nature. I'm uncertain as to why only the right mammogram was done in April. The patient's mammogram on showed scattered fibroglandular densities. The patient's ultrasound on the same date revealed at the 9 o'clock position a 6 x 4 mm hypoechoic lesion possible debris- filled cyst At the 9 o'clock position a 1.4 x 0.7 cm possible lipoma At the 10 o'clock position a couple additional 2 small to characterize lesions present just deep to the skin This was considered BIRADS 3 and repeat ultrasound in 6 months was recommended. The patient is not complaining of any new lumps masses or nodules in either breast. The patient is not complaining of any nipple discharge or skin changes. She had had a right breast biopsy about 30 years ago which was benign. 11-30-22 bilateral mammogram on 10-24-22; right breast ultrasound 10-24-22 BIRAD 2 1. probable benign lipoma at 9:00 2. 6 mm cyst at 10:00 She is not complaining of any new lumps masses or nodules of concern in either breast. She states that the pain which she had prior has decreased. He has decreased her caffeine intake. 11-01-23 Bilateral mammogram 10-26-23 BIRAD 2 personally reviewed and interpreted She has minimal breast discomfort at this time She is not complaining of any new lumps masses or nodules of concern in either breast caffeine: 3 cups tea/day; 1 pop/day; 11-30-22 has stopped drinking pop/ decreased tea; 11-01-23 only drinks decaf at this time occasional Dr. Bettina rios nicotine: none chocolate: occasional BCP: 10 years hormones: at menopause over the counter 2 months Family history: sister: ? kidney or liver cancer Hormonal History: menarche: 9 as well at 2 adopted; breat fed: yes, age at first : 17 menopause: 41 Surgical History: tonsil/adeniods Stripping Gallbladder Right breast biopsy right knee replaced Medical history: diabetic hypothyroid HTN vertigo asthma Social History: nicotine: none alcohol: none drugs: none - Constitutional Constitutional: Denies chills, Denies fever - EENT Eyes: denies blurred vision, denies pain Ears: deny: decreased hearing, tinnitus Ears, nose, mouth and throat: Denies headache, Denies sore throat - Breasts Breasts: bilateral: as per HPI - Cardiovascular Cardiovascular: Denies chest pain, Denies shortness of breath - Respiratory Respiratory: Denies cough - Gastrointestinal Gastrointestinal: Reports diarrhea, Denies abdominal pain, Denies nausea, Denies vomiting - Genitourinary (Female) Genitourinary: Denies dysuria, Denies hematuria - Menstruation Menstruation: Reports postmenopausal - Musculoskeletal Musculoskeletal: Denies myalgias - Integumentary Comment: none - Neurological Neurological: Denies numbness, Denies weakness - Psychiatric Psychiatric: Denies anxiety, Denies depression - Endocrine Endocrine: Reports weight change, Denies fatigue - Hematologic/Lymphatic Comment: none - Allergic/Immunologic Allergic/Immunologic: Reports seasonal allergies Past Medical History Past Medical History: Diabetes Mellitus, Hyperlipidemia, Hypertension, Thyroid Disorder History of Any Multi-Drug Resistant Organisms: None Reported Past Surgical History: Adenoidectomy, Appendectomy, Cholecystectomy, Joint Replacement, Orthopedic Surgery, Tonsillectomy Additional Past Surgical History / Comment(s): rt knee Past Psychological History: No Psychological Hx Reported Smoking Status: Never smoker Past Alcohol Use History: None Reported Past Drug Use History: None Reported Medications and Allergies Allergies Allergy/AdvReac Type Severity Reaction Status Date / Time No Known Allergies Allergy Verified 05/05/22 22:44 Objective - Vital Signs Vital signs: Vital Signs Temp 97.9 F 11/01/23 12:57 Pulse 92 11/01/23 12:57 Resp 17 11/01/23 12:57 BP 166/73 11/01/23 12:57 Pulse Ox 96 11/01/23 12:57 FiO2 Intake & Output 10/31/23 11/01/23 11/01/23 18:59 06:59 18:59 Weight 86.183 kg - Constitutional General appearance: Present: cooperative - EENT Eyes: Present: EOMI ENT: Present: hearing grossly normal - Neck Neck: Present: normal ROM - Respiratory Respiratory: bilateral: CTA - Cardiovascular Rhythm: regular Heart sounds: normal: S1, S2 - Integumentary Integumentary: Present: normal turgor - Musculoskeletal Musculoskeletal: Present: gait normal - Psychiatric Psychiatric: Present: A&O x's 3, appropriate affect, intact judgment & insight - Additional findings Additional findings: Breast Exam: BRA: 44D Inspection: Bilateral grade 3 ptosis Palpation: Right breast: multipositional exam fibrocystic changes well-healed scar from prior surgery no discrete dominant masses or nodules of concern Right axilla: No adenopathy of concern Left breast: Multi positional exam fibrocystic changes no discrete dominant masses or nodules of concern Left axilla: No adenopathy of concern Fungal infection under right breast Assessment and Plan Assessment: Impression: Bilateral breast pain improved Patient drinks less caffiene Mammogram 10-26-23 BIRAD 2 personally reviewed and interpreted For cystic breast changes/fungal infection under right breast Plan: Bilateral mammogram one year October 2024 with appointment at that time Patient is going to try to continue to decrease caffeine intake Nystatin to the area under the right breast Nothing is noted at this time which would warrant interventional biopsy Cc: Dr. Sweeney
== END ==
LOC: WWCWWP 12:33
PROVIDERS: ATTEND Surgery
DX: R92.8 Other abnormal and inconclusive findings on diagnostic imaging of breast (principal); N64.4 Mastodynia; N60.11 Diffuse cystic mastopathy of right breast; B48.8 Other specified mycoses

== ENCOUNTER → 2024-01-07 | Outpatient (CLI) | payer MEDICARE, OTHER ==
[2024-01-07 16:33] LABS: T4, Free (Free Thyroxine) 1.31 ng/dL (0.80-1.80)
== END | disposition home or self-care (01) ==
LOC: LABWHC1 10:37
PROVIDERS: ATTEND Internal Medicine
DX: E11.65 Type 2 diabetes mellitus with hyperglycemia (principal); E05.90 Thyrotoxicosis, unspecified without thyrotoxic crisis or storm
CPT/HCPCS: 36415; 83036; 84439; 84443; 84481